=== PATIENT | female | born 1990 | race Caucasian/White ===

== ENCOUNTER → 2018-05-29 13:37 | Outpatient (CLI) | payer OTHER, SELFPAY ==
[2018-06-03 11:21] LABS: HPV Reflexed? NOT INDICATED
== END ==
PROVIDERS: Visit Provider Obstetrics & Gynecology
DX: Z12.4 Encounter for screening for malignant neoplasm of cervix (principal)
CPT/HCPCS: 88175; G0145

== ENCOUNTER 2021-06-29 06:51 | Day surgery (SDC) | payer OTHER, SELFPAY ==
[2021-06-28 13:11] LABS: Hematocrit 43.5 % (37-47); Hemoglobin 14.3 g/dL (12.0-15.0); Mean Corp Hgb Conc 32.9 g/dL (32-36); Mean Corpuscular Volume 91.2 fL (81-99); Mean Platelet Vol. 12.3 fl (6.2-12.0); Platelet Count 231 K/mm3 (150-450); RBC Distribution Width SD 43.4 fl (35.1-43.9); Red Blood Count 4.77 M/mm3 (4.2-5.4); White Blood Count 8.9 K/mm3 (4.4-11.0)
[2021-06-29] VITALS (11 sets, daily range): BP systolic 85–128; BP diastolic 50–74; PULSE 64–94; RESP 12–18; TEMP 36.1–37; O2SAT 96–100; BMI 31.3
--- NOTE | 2021-06-29 07:17 | PCM.HP.BLA ---
History and Physical Date of Admission: 06/29/21 HISTORY OF PRESENT ILLNESS: On 06/26/2021, Joann Benavides, a 31 year old female 2 0 0 0 2, presented for: bilateral laparoscopic salpingectomy. Desires permanent sterilization. ALLERGIES: naproxen, Hives, Naproxen and Hives and/or rash MEDICATIONS HISTORY: Denies REVIEW OF SYSTEMS: GENERAL - Denies fever, or chills SKIN - Left breast mole removed. EYES - Denies visual changes EARS - Denies difficulty hearing NOSE - Denies nasal congestion or bleeding MOUTH - Denies sore throat or difficulty swallowing NECK - Denies pain or swelling RESPIRATORY - Denies shortness of breath or wheezing CARDIOVASCULAR - Denies palpitations or chest pain GASTROINTESTINAL - Denies nausea, vomiting, diarrhea, constipation GENITOURINARY - Denies dysuria, frequency of urination, incontinence of urine MUSCULOSKELETAL - Denies joint or muscle pain NEUROLOGICAL - Denies localized numbness or weakness PSYCHIATRIC - Denies depression or anxiety ENDOCRINE - Denies heat or cold intolerance, weight loss or gain HEMATO-IMMUNOLOGIC - Denies excesive bleeding with cuts PAST HISTORY: Denies SURGICAL HISTORY: 1. mole removed from left breast 2. 02/18/2013 primary Bibiana Roach MD 3. left ankle, 2009 4. tonsils, 1997 5. 02/07/2016 and adhesiolysis Analia Horner M.D. PAST PREGNANCIES: Total Pregnancies - 2; Full Term Pregnancies - 2; Premature - 0; Abortions, Induced - 0; Abortions, Spontaneous - 0; Ectopics - 0; Multiple Births - 0; Living Children - 2 FAMILY HISTORY (OLD): Father: hyperlipidemia. SOCIAL HISTORY: Alcohol Use - denies drinking Smoking - Never Diet - balanced Diet BP- 128/74 Sitting, Right arm, large cuff Weight- 200.0 lbs Height- 67.0 inch BMI:31.32 CONSTITUTIONAL - NAD, well nourished, and well developed SKIN - No rash, lesions, or ulcers HEENT - Normocephalic, PERRLA, EOMI LUNGS - CTA x2 without wheezes, crackles or rales CARDIAC - Regular rate and rhythm without rubs, murmurs, or gallops ABDOMEN - Without hepatosplenomegaly, distention, masses, rebound, or guarding; normal bowel sounds; no hernias EXTREMITIES - No edema or calf tenderness NEUROLOGICAL - Cranial nerves II-XII grossly intact PSYCHIATRIC - A and O to time, place, person, mood and affect ASSESSMENT/PLAN: Planned for laparoscopic bilateral salpingectomy today. Discussed risks/benefits/alternative. Risks include but are not limited to: Risk of bleeding to the point of transfusion, infection, injury to surrounding tissue including bowel/bladder/major vessels, VTE, ICU admission. Patient aware and consented. Patient also aware of risk of regret. She understands that this is a permanent procedure
[2021-06-29 07:19] LABS: Internal QC Validated? YES +Cl - CLEAR BKGD; Pregnancy, Urine Negative Negative
[2021-06-29] MEDS: Lactated Ringers 1,000 ML 100 ML IV ×3 (07:26→12:04)
--- NOTE | 2021-06-29 07:59 | PCM.DC ---
Discharge Instructions Diet Discharge Diet: No restrictions Activity Discharge Activity: Return to Normal Activity and May Shower May resume sexual activity in: 2 weeks Weight Bearing Status: Weight bearing as tolerated Lifting Restrictions: No greater than 25 pounds Dressing / Incision Call your doctor if your incision/area has: Continuous Slow Oozing, Increased Redness and Foul Smelling Discharge Call your doctor if you observe: Fever of 101 or Higher, Inability to urinate, Using more than 1 pad per hour, Shortness of breath, Dizziness, Chest pain and Calf discomfort Cleanse incision/area with: Soap & Water Follow Up Care Please Follow Up With: Aspen Jones DO When: 2 week post operative Test Results: Test results from this visit will be discussed in further detail at your follow-up appointment, if applicable. Discharge Plan Admission Primary Reason for Your Visit: Bilateral laparoscopic salpingectomy Attending Provider: Aspen Jones Primary Care Provider: Christian Stewart Discharge Orders/Prescriptions Prescriptions: New oxycodone 5 mg tablet 5 mg PO Q6H PRN (Reason: pain (scale score 7-10)) 2 Days Qty: 8 RF: 0 Continued multivitamin Tablet,Chewable 1 tab PO DAILY RF: 0 Referrals / Follow Up: Christian Stewart MD [Primary Care Provider] - Disposition Disposition (needs filled in before D/C Order can be placed): Home, Self Care
--- NOTE | 2021-06-29 08:03 | PCM.OPRPT ---
Report of Operation Date of Procedure: 06/29/21 Pre-Operative Diagnosis: Desires permanent sterilization Post-Operative Diagnosis: Desires permanent sterilization, Endometriosis, Adhesions Surgery/Procedure Performed:: Laparoscopic Bilateral Salpingectomy, Lysis of Adhesions Description of Surgical Findings:: Normal-appearing external genitalia. No uterine descensus. Adhesions from the uterus to the anterior abdominal wall. Left ovarian cyst, endometrioma. Left sidewall adhesions. No upper abdominal adhesions. Type of Anesthesia: General Specimen's removed: Bilateral fallopian tubes Estimated Blood Loss (mL): 20 cc Description of Procedure: Patient taken to the operating room and placed under general anesthesia. Patient placed in the dorsal lithotomy position and prepped and draped in the usual sterile fashion. Garzon catheter placed. Weighted speculum placed in posterior vagina and Humphreys retractor used to visualize the cervix. Anterior lip of the cervix grasped with a single-tooth tenaculum. Cervix gradually dilated and Sargis manipulator placed. Retractors removed. Gloves changed and attention turned to the anterior abdominal wall. Infraumbilical incision made with scalpel and abdominal cavity entered under direct visualization. Abdomen insufflated. Right and left trochars placed under direct visualization. Findings noted as above. Lysis of adhesions of the left fallopian tube to the pelvic sidewall completed with laparoscopic scissors. This freed the fallopian tube. Fallopian tube grasped and coagulated, cut, and removed using LigaSure device. During grasping of fallopian tube portion of left ovarian cyst ruptured noting endometrioma. Left ovary was adhesed to bowel posteriorly and remainder of ovary appeared to have a follicular cyst. Unable to differentiate cyst wall from ovarian tissue. Due to this decision to leave left ovary was made. Attention was then turned to the right fallopian tube which was grasped, coagulated cut and removed using LigaSure device. Pelvis was suction irrigated. Saul placed on left pelvic sidewall, hemostatic. Abdomen desufflated. Trochars removed. Skin closed with subcuticular stitch and skin glue. Sargis removed. At the end of the procedure all needle, lap, sponge counts were correct x3. Urine output: 150 cc. Complications None
--- NOTE | 2021-06-29 08:30 | FALS_PTH ---
PATIENT: REBECCA ALMANZAR LOC: [facility] U#:[id number] AGE/SX: 31/F ROOM: RE06/29/[address]: Dr. Aspen Jones DO : 1990 BED: DIS: 06/29/2021 SPEC #: [id number] RECD: 06/29/21 09:29 STATUS: AMY DIONI #: [id number] MIKO: 06/29/21 08:[address]: Aspen Jones DEPT: SURGICAL PATHOLOGY RECD BY: Shahida Collins ENTERED: 06/29/21 11:13 SP TYPE: FALL TUBES OTHR DR: Dr. Christian Stewart MD Tissues: Fallopian tube Procedures: Surgery Specimen Level II HEADER OPERATION: Laparoscopic salpingectomy PRE-OP DIAGNOSIS: Sterilization TISSUE SUBMITTED: Bilateral fallopian tubes MICROSCOPIC DIAGNOSIS Bilateral fallopian tubes, salpingectomy: Bilateral fallopian tubes, no pathologic diagnosis. SREE:ezequiel 06/30/2021 MICROSCOPIC DESCRIPTION Slides are reviewed. GROSS DESCRIPTION Received in fixative is one container labeled with the patient's name and designated bilateral fallopian tubes. The specimen consists of bilateral fallopian tubes. One of the fallopian tubes show fimbrial end and second fallopian tube does not show obvious fimbrial end. The fallopian tube with fimbrial end measures 6 cm in length and 0.5 cm in diameter. The second fallopian tube without fimbrial end measures 3.5 cm in length and 0.5 cm in diameter. The fallopian tubes are not identified as right or left. Sections reveal unremarkable cut surfaces. Non Ferrous Material Handler sections are submitted in two cassettes as follows: 1 - fallopian tube with fimbrial end, 2 - fallopian tube without fimbrial end. / SJ:ezequiel 06/29/21 TC:1 [facility]: [id number] x2
== END 2021-06-29 13:35 | disposition home or self-care (01) ==
LOC: SDC 06:51 → AC 06:52
PROVIDERS: Anesthesiology; PCP Family Medicine; Referring Provider Student in an Organized Health Care Education/Training Program; Visit Provider Student in an Organized Health Care Education/Training Program
PROC: (CPT 58661; principal; 2021-06-29 08:15)
DX: Z30.2 Encounter for sterilization (principal); N80.3 Endometriosis of pelvic peritoneum; N83.202 Unspecified ovarian cyst, left side
CPT/HCPCS: 00840; 58661; 36415; 81025; 85027; 86850; 86900; 86901; 87426; 88302; C9803; J7120; J2405